=== PATIENT | male | born 1955 | race Caucasian/White ===

== ENCOUNTER 2019-07-07 17:32 | Emergency (ER) | payer OTHER ==
[~2019-07-07] VITALS: Ht 165.1 cm; Wt 68.0 kg
[2019-07-07 17:41] VITALS: BP 106/75
[2019-07-07] MEDS ORDERED: IBUPROFEN 600 MG TABLET PO ONE ×2 (18:24→18:30)
--- NOTE | 2019-07-07 18:29 | NUR ---
PATIENT AWAKE ALERT NO NAUSEA AND VOMIT @ THISTIME CONTU=INUE TO MONITOR
[2019-07-07 18:36] LABS: BASOPHILS % (AUTO) 0.4 % (0.0-2.0); EOSINOPHILS % (AUTO) 0.1 % (0.0-6.0); HEMATOCRIT 37 % (39-51); HEMOGLOBIN 12.6 g/dL (13.5-17.5); LYMPHOCYTES # (AUTO) 0.8 /CMM (0.8-4.8); LYMPHOCYTES % (AUTO) 14.8 % (20.0-44.0); MEAN CORPUSCULAR HGB CONC 34 g/dl (31.0-36.0); MEAN CORPUSCULAR VOLUME 97 fL (80-96); MONOCYTES # (AUTO) 0.2 /CMM (0.1-1.30); NEUTROPHILS # (AUTO) 4.4 /CMM (1.8-8.9); NEUTROPHILS % (AUTO) 80.7 % (43.0-81.0); PLATELET COUNT (AUTO) 273 /CMM (150-450); RED BLOOD CELL COUNT(AUTO) 3.83 MIL/uL (4.5-6.0); WHITE BLOOD COUNT (AUTO) 5.5 K/uL (4.3-11.0)
[2019-07-07 19:05] LABS: ALBUMIN 3.8 g/dL (3.4-5.0); BILIRUBIN,DIRECT 0.3 mg/dL (0.0-0.2); BILIRUBIN,TOTAL 0.8 mg/dL (0.2-1.0); CALCIUM, SERUM 8.9 mg/dL (8.5-10.1); CREATININE 0.9 mg/dL (0.6-1.3); POTASSIUM 3.4 mmol/L (3.5-5.1); TOTAL PROTEIN, SERUM 8.5 g/dL (6.4-8.2)
--- NOTE | 2019-07-07 19:20 | NUR ---
TRANSFER CARE REPORT TO NOMI AZUL
--- NOTE | 2019-07-07 20:14 | NUR ---
Patient discharged to home in stable condition. Written and verbal after care instructions given. Patient verbalizes understanding of instruction. PT AMBULATORY WITH STEADY GAIT ACCOMPANIED BY 2 [employer]ICERS.
== END 2019-07-07 20:16 | disposition home or self-care (01) ==
LOC: ER 17:35
DX: R51 Headache (principal); R10.11 Right upper quadrant pain; M25.572 Pain in left ankle and joints of left foot
CPT/HCPCS: 36415; 70450-TC; 73610-TC; 76705-TC; 80048-TC; 80076-TC; 83690-TC; 85025-TC